=== PATIENT | male | born 1955 | race Caucasian/White ===

== ENCOUNTER 2024-11-07 18:16 | Emergency (ER) | payer MEDICARE, OTHER, SELFPAY ==
[2024-11-07 18:20] VITALS: BP 121/82
--- NOTE | 2024-11-07 18:29 | ED.GENMED ---
ED Provider Triage
<Marlys Melo PA-C - Last Filed: 11/08/24 10:02>
-
Patient seen by provider in Triage?: Seen in Triage
Attestation: A medical screening examination has been initiated by a qualified medical provider. Based on the assessment performed at this time, it has been determined that an emergent medical condition may exist and the patient has been informed
that further medical evaluation and possible additional diagnostic testing may be needed.
HPI: 69yoM here with LLQ pain since yesterday. Also c/o nausea, constipation. Urinating in small amounts at a time. Hx of kidney stones.
GENERAL: Alert , in no apparent distress
EYE: No visual abnormalities.
NECK: Trachea midline
ENT: No visible abnormalities.
LUNGS: No acute respiratory distress
NEUROLOGICAL: Alert and oriented
SKIN: Skin intact. No visible changes.
MUSCULOSKELETAL: Moving extremities normally
PSYCH: Normal and appropriate interaction.
This is a medical evaluation conducted in person to initiate diagnostic evaluation and provide initial therapeutics. Please see further documentation by the treating clinician.
CBC, CMP, UA, and CT abdomen ordered.
History of Present Illness
<Marlys Melo PA-C - Last Filed: 11/08/24 10:02>
General
Chief Complaint: Abdominal Pain
Time Seen by Provider: 11/07/24 20:03
<Lily Ambrose NP - Last Filed: 11/07/24 21:17>
General
Source: patient and spouse
Exam Limitations: none
Nursing documentation reviewed up to this point in time: agreed with
History of Present Illness
History of Present Illness:
Patient to ED wtih complaint of LLQ abdominal pain. Symptms started yesterday. Denies fever/chills, n/v/d. Brought to ED by spouse for eval
Past History
<Marlys Melo PA-C - Last Filed: 11/08/24 10:02>
Past History
ED Past Medical History: Arrthythmia, HTN and Other (Kidney stones)
ED Past Surgical History: Cardiac
Social History
Tobacco: Non-smoker
Alcohol: None
Review of Systems
<Lily Ambrose NP - Last Filed: 11/07/24 21:17>
Review of Systems
Allergies reviewed?: Yes
All Other Systems: ROS reviewed and negative except as documented in HPI and ROS
Constitutional: Reports no symptoms
EENT: Reports no symptoms
Respiratory: Reports no symptoms
Cardiac: Reports no symptoms
ABD/GI: Reports abdominal pain (LLQ)
: Reports no symptoms
Musculoskeletal: Reports no symptoms
Skin: Reports no symptoms
Neurological: Reports no symptoms
Psychiatric: Reports no symptoms
Phy Exam
<Lily Ambrose NP - Last Filed: 11/07/24 21:17>
General Physical Exam
General Presentation: mild distress
General age: appears stated age
General Skin: warm and dry
General Habitus: normal
General Mental: alert
Gastrointestinal Exam
Gastrointestinal Exam: normal bowel sounds, soft, no organomegaly, non distended and no cva tenderness
Palpation: left lower quadrant: Moderate tenderness
Musculoskeletal Exam
Musculoskeletal Exam: full ROM
Skin Exam
Skin Exam: normal color, warm/dry and no rash
Psychiatric Exam
Psychiatric Exam: normal mood/affect
Course
<Marlys Melo PA-C - Last Filed: 11/08/24 10:02>
Orders/Labs/Results
Orders:
Orders
11/07/24 18:33
CT Abd/pelvis W Iv Cont Urgent
Comment:
Reason For Exam: LLQ pain
11/07/24 18:39
CMP [Comprehensive Metabolic Panel] Urgent
Complete Blood Count/With Diff Urgent
Urinalysis Reflex To Culture Urgent
Date Specimen was Collected: 11/07/24
Time Specimen was Collected: 18:37
Urine Microscopic Reflex Cult Urgent
11/07/24 20:11
0.9% Sodium Chloride 1000 ml [Nss] 1,000 ml IV BOLUS
11/07/24 20:18
Morphine Sulfate 4 mg IV NOW STA
Ondansetron Injectable [Zofran] 4 mg IV NOW STA
11/07/24 21:10
Oxycodone/Acetaminophen [Percocet 5/325] 1 tablet PO NOW STA
Abnormal Lab Results
11/07/24
18:39
RBC 4.60 L 10^6/uL
(4.70-6.10)
MCH 31.5 H pg
(27.0-31.0)
Absolute Neuts (auto) 7.0 H 10^3/uL
(1.4-6.5)
Absolute Monos (auto) 0.8 H 10^3/uL
(0.1-0.6)
Neutrophils % 76.2 H %
(42.2-75.2)
Lymphocytes % 13.2 L %
(20.5-51.1)
BUN 25 H mg/dl
(9-20)
Creatinine 1.5 H mg/dL
(0.7-1.3)
Glucose 108 H mg/dl
(70-99)
Urine Ketones Trace A
(Negative)
Ur Occult Blood Reflex 1+ A
(Negative)
11/07/24 18:39
11/07/24 18:39
Vital Signs
Initial and Last Documented VS:
Initial Vital Signs
Temp Pulse Resp BP Pulse Ox
99.0 F 82 20 121/82 98
11/07/24 18:20 11/07/24 18:20 11/07/24 18:20 11/07/24 18:20 11/07/24 18:20
Last Documented Vital Signs
Temp Pulse Resp BP Pulse Ox
99.0 F 82 20 121/82 97
11/07/24 18:20 11/07/24 18:20 11/07/24 18:20 11/07/24 18:20 11/07/24 20:21
<Lily Ambrose NP - Last Filed: 11/07/24 21:17>
Orders/Labs/Results
Orders:
Orders
11/07/24 18:33
CT Abd/pelvis W Iv Cont Urgent
Comment:
Reason For Exam: LLQ pain
11/07/24 18:39
CMP [Comprehensive Metabolic Panel] Urgent
Complete Blood Count/With Diff Urgent
Urinalysis Reflex To Culture Urgent
Date Specimen was Collected: 11/07/24
Time Specimen was Collected: 18:37
Urine Microscopic Reflex Cult Urgent
11/07/24 20:11
0.9% Sodium Chloride 1000 ml [Nss] 1,000 ml IV BOLUS
11/07/24 20:18
Morphine Sulfate 4 mg IV NOW STA
Ondansetron Injectable [Zofran] 4 mg IV NOW STA
11/07/24 21:10
Oxycodone/Acetaminophen [Percocet 5/325] 1 tablet PO NOW STA
Abnormal Lab Results
11/07/24
18:39
RBC 4.60 L 10^6/uL
(4.70-6.10)
MCH 31.5 H pg
(27.0-31.0)
Absolute Neuts (auto) 7.0 H 10^3/uL
(1.4-6.5)
Absolute Monos (auto) 0.8 H 10^3/uL
(0.1-0.6)
Neutrophils % 76.2 H %
(42.2-75.2)
Lymphocytes % 13.2 L %
(20.5-51.1)
BUN 25 H mg/dl
(9-20)
Creatinine 1.5 H mg/dL
(0.7-1.3)
Glucose 108 H mg/dl
(70-99)
Urine Ketones Trace A
(Negative)
Ur Occult Blood Reflex 1+ A
(Negative)
11/07/24 18:39
11/07/24 18:39
Vital Signs
Initial and Last Documented VS:
Initial Vital Signs
Temp Pulse Resp BP Pulse Ox
99.0 F 82 20 121/82 98
11/07/24 18:20 11/07/24 18:20 11/07/24 18:20 11/07/24 18:20 11/07/24 18:20
Last Documented Vital Signs
Temp Pulse Resp BP Pulse Ox
99.0 F 82 20 121/82 97
11/07/24 18:20 11/07/24 18:20 11/07/24 18:20 11/07/24 18:20 11/07/24 20:21
<Lily Ambrose NP - Last Filed: 11/07/24 21:17>
*Radiology
Radiology exam reviewed: radiology read reviewed
*Pulse Oximetry
Patient hypoxic: no
*Critical Care Note
Total Time (30-74mins, 75-104mins- exclusive of procedures): Not Applicable
<Lily Ambrose NP - Last Filed: 11/07/24 21:17>
Update Note
Update Note:
Patient to ED with complaint of LLQ abd pain. Labs,k CT reviewed. 1mm renal stone in left UVJ. No evidence of UTI. He is currently taking flomax, will continue. Given short rx for pain medication. WIll discharge home and he will follow up with
his private urologist (JOHN). Given instrutions on s/s to return to ED and he is agreeable to plan.
ED Attending Note
<Marlys Melo PA-C - Last Filed: 11/08/24 10:02>
-
Portions of this chart may have been created with voice recognition software.� Occasional wrong word or��sound alike� substitutions may have occurred due to the inherent limitations of voice recognition software.
Discharge Plan
Departure
Patient Disposition: Home (Routine Discharge)
Date of Disposition: 11/07/24
Time of Disposition: 21:10
Patient with high blood pressure during this ER visit?: No
Condition: Good
Covid-19: Not Applicable
Discharge Problem:
Kidney stone
Instructions: Kidney Stones (DC)
Prescriptions:
New
oxycodone-acetaminophen [Percocet] 5-325 mg tablet
1 tab PO Q4HPRN PRN (Reason: pain) Qty: 12 0RF
No Action
tamsulosin [Flomax] 0.4 mg capsule
0.4 mg PO HS Qty: 14 0RF
Activity Restrictions/Additional Instructions:
Follow up with your urologist. Call in the AM to schedule your appointment. Return to the emergency department immediately for fever/chills, increasing pain, vomiting, or for any further concerns.
Interventions
Interventions:
*Risk Screen - Suicide Last Done: 11/07/24 18:20
*General Assessment Last Done: 11/07/24 18:20
*Neglect/Abuse Screening Last Done: 11/07/24 18:20
ED- Fall Risk Assessment Last Done: 11/07/24 20:21
*ED COVID-19 Vaccine History Last Done: 11/07/24 18:20
*Nursing Disposition Last Done: 11/07/24 22:11
XN-Tmbtnd-Oltwulfxka Assessment Last Done: 11/07/24 20:21
Discharge Date and Time
Discharge Date/Time: 11/07/24 22:17
Print Language: KYRGYZ
[2024-11-07 18:47] LABS: % Basophils 0.2 % (0-2); % Eosinophils 1.5 % (0-6); % Immature Granulocytes 0.1 % (0-0.5); % Lymphocytes 13.2 % (20.5-51.1); % Monocytes 8.8 % (1.7-9.3); % Neutrophils 76.2 % (42.2-75.2); Absolute Eosinophils 0.1 10^3/uL (0-0.7); Absolute Lymphocytes 1.2 10^3/uL (1.2-3.4); Absolute Monocytes 0.8 10^3/uL (0.1-0.6); Hematocrit 42.1 % (39.0-52.0); Hemoglobin 14.5 g/dL (13.0-18.0); Mean Corp Hgb Conc. 34.4 g/dL (33.0-37.0); Mean Corpuscular Hgb 31.5 pg (27.0-31.0); Mean Corpuscular Volume 91.5 fL (80.0-94.0); Mean Platelet Volume 9.3 fL (7.4-10.4); Nucleated Red Blood Cells % 0 % (-); Platelet Count 165 10^3/uL (130-400); Red Cell Dist. Width 12.5 % (11.5-14.5); Urine Albumin Negative (Neg - Trace); Urine Bilirubin Negative (Negative); Urine Character Clear (Clear); Urine Color Yellow; Urine Glucose Negative (Negative); Urine Ketone Trace (Negative); Urine Leukocyte Negative (Negative); Urine Nitrite Negative (Negative); Urine Occult Blood 1+ (Negative); Urine Specific Gravity 1.025 (<1.030); Urine Urobilinogen Negative (Neg - 1+); White Blood Cell Count 9.2 10^3/uL (4.8-10.8)
[2024-11-07 19:04] LABS: Urine Squamous Cell 0-2 /LPF (Few); Urine Uric Acid Crystals Present
[2024-11-07 19:05] LABS: Urine Red Blood Cell 0-2 /HPF (0-2); Urine White Cell 0-2 /HPF (0-5)
[2024-11-07 19:06] LABS: ALT (SGPT) 22 U/L (0-50); AST (SGOT) 23 U/L (17-59); Albumin 4.4 g/dl (3.5-5.0); Alkaline Phosphatase 58 U/L (38-126); Blood Urea Nitrogen 25 mg/dl (9-20); Carbon Dioxide 26 mmol/L (22-30); Chloride 101 mmol/L (98-107); Glucose 108 mg/dl (70-99); Potassium 4.3 mmol/L (3.5-5.1); Sodium 137 mmol/L (135-145); Total Protein 6.9 g/dl (6.3-8.2)
[2024-11-07 20:13] VITALS: BMI 32.9
[2024-11-07] MEDS: NSS 1000 IV (20:24)
[2024-11-07] MEDS: ZOFRAN 4 MG IV (20:27)
[2024-11-07] MEDS: MORPHINE SULFATE 4 MG IV (20:28)
[2024-11-07] MEDS: PERCOCET 5/325 1 TABLET PO (22:10)
== END 2024-11-07 22:17 | disposition home or self-care (01) ==
LOC: EMR 18:16
PROVIDERS: Emergency Medicine; Physician Assistant; EMERGENCY PHYSICIAN Emergency Medicine
DX: N20.0 Calculus of kidney (principal); I10 Essential (primary) hypertension
CPT/HCPCS: 96374; 96375; 96361; 99284; 74177; 80053; 81003; 81015; 85025; Q9967

== ENCOUNTER 2025-06-16 13:48 | Emergency (ER) | payer MEDICARE, OTHER, SELFPAY ==
[2025-06-16 13:50] VITALS: BP 165/80
--- NOTE | 2025-06-16 16:11 | ED.GENMED ---
History of Present Illness
General
Chief Complaint: Musculo-Skeletal Complaint
Time Seen by Provider: 06/16/25 15:56
History of Present Illness
History of Present Illness:
70-year-old male presents to the emergency department for evaluation of diffuse right low back and right leg pain that has been going on for the past several days. Began while swinging a golf club in a driving range yesterday. He has known L2-L3
and L3-L4 disc herniations by MRI last month. Denies any loss of bladder or bowel function or numbness of the right lower extremity at this time. Taking Advil without adequate relief of pain
Past History
Past History
ED Past Medical History: Arrthythmia, HTN and Other (Kidney stones)
ED Past Surgical History: Cardiac
Social History
Tobacco: Non-smoker
Alcohol: None
Review of Systems
Review of Systems
Allergies reviewed?: Yes
All Other Systems: ROS reviewed and negative except as documented in HPI and ROS
Phy Exam
Physical Exam
Physical Exam:
GEN: Well appearing, NAD, WDWN
HEENT: Oral mucosa moist, no scleral icterus
Cardiac: Regular rate
Lung: No respiratory distress, no tachypnea
MSK: No gross deformity or injuries. Right hip and knee range of motion normal in all watson, positive straight leg raise on the right. Normal sensation throughout. Moderately tender to palpation of the right lower extremity diffusely, no edema
Skin: Good color, no pallor or jaundice, no rashes
Neuro: AO x3, moves all extremities freely
Psych: Calm, cooperative
Course
Orders/Labs/Results
Orders:
Orders
06/16/25 16:11
Ketorolac [Toradol] 30 mg IM NOW STA
Vital Signs
Initial and Last Documented VS:
Initial Vital Signs
Temp Pulse Resp BP Pulse Ox
97.9 F 60 16 165/80 97
06/16/25 13:50 06/16/25 13:50 06/16/25 13:50 06/16/25 13:50 06/16/25 13:50
Last Documented Vital Signs
Temp Pulse Resp BP Pulse Ox
97.9 F 54 18 122/73 99
06/16/25 13:50 06/16/25 17:06 06/16/25 17:06 06/16/25 17:06 06/16/25 17:06
MDM/Problems Addressed
MDM/Problems Addressed:
I suspect patient's symptoms are due to his known disc herniations in the setting of golfing, will recommend NSAIDs and pain medication, he has borderline diabetes thus would opt against steroids at this time until spine specialty follow-up, he is
already scheduled outpatient PT
*Pulse Oximetry
SaO2: 97
Oxygen Mode of Delivery: Room air
Patient hypoxic: no
*Critical Care Note
Total Time (30-74mins, 75-104mins- exclusive of procedures): Not Applicable
ED Attending Note
-
Portions of this chart may have been created with voice recognition software.� Occasional wrong word or��sound alike� substitutions may have occurred due to the inherent limitations of voice recognition software.
Discharge Plan
Departure
Patient Disposition: Home (Routine Discharge)
Date of Disposition: 06/16/25
Time of Disposition: 16:13
Patient with high blood pressure during this ER visit?: No
Discharge Problem:
Acute lumbar radiculopathy
Instructions: Radiculopathy of the neck and back (including sciatica) - Discharge instruc
Prescriptions:
New
oxycodone-acetaminophen [Percocet] 5-325 mg tablet
1 tab PO Q6HPRN PRN (Reason: pain) Qty: 8 0RF
diclofenac sodium 75 mg tablet,delayed release (DR/EC)
75 mg PO BID PRN (Reason: Pain) Qty: 20 0RF
No Action
tamsulosin [Flomax] 0.4 mg capsule
0.4 mg PO HS Qty: 14 0RF
oxycodone-acetaminophen [Percocet] 5-325 mg tablet
1 tab PO Q4HPRN PRN (Reason: pain) Qty: 12 0RF
Interventions
Interventions:
*Nursing Disposition Last Done: 06/16/25 17:07
ED-Musculoskeletal Assessment Last Done: 06/16/25 16:32
Discharge Date and Time
Discharge Date/Time: 06/16/25 17:08
Print Language: BULGARIAN
[2025-06-16] MEDS: TORADOL 30 MG IM (16:20)
[2025-06-16 17:06] VITALS: BP 122/73
== END 2025-06-16 17:08 | disposition home or self-care (01) ==
LOC: EMR 13:48
PROVIDERS: EMERGENCY PHYSICIAN Emergency Medicine; FAMILY PHYSICIAN Family Medicine
DX: M54.16 Radiculopathy, lumbar region (principal); I10 Essential (primary) hypertension
CPT/HCPCS: 96372; 99284